=== PATIENT | female | born 1960 | race American Indian/Alaskan Native ===

== ENCOUNTER 2019-05-15 11:59 | Emergency (ER) | payer SELFPAY ==
--- NOTE | 2019-05-15 12:29 | Emergency Department Report ---
Blank Doc - Documentation Documentation: This is a 58-year-old female that presents with right arm pain with headache. Tachycardia in traiage. Stated that she feels like her heart if fluttering. This initial assessment/diagnostic orders/clinical plan/treatment(s) is/are subject to change based on patient's health status, clinical progression and re- assessment by fellow clinical providers in the ED. Further treatment and workup at subsequent clinical providers discretion. Patient/guardians urged not to elope from the ED as their condition may be serious if not clinically assessed and managed. Initial orders include: 1- Patient sent to MAIN ED for further evaluation and treatment 2- EKG 3- labs 4- CXR
[2019-05-15] MEDS ORDERED: TYLENOL PO ONE (12:31)
[2019-05-15] MEDS ORDERED: TYLENOL ONE (12:34)
--- NOTE | 2019-05-15 12:57 | XRay Report ---
CHEST TWO VIEWS: 05/15/19 11:59:00 CLINICAL: Chest pain. COMPARISON: None FINDINGS: Normal heart and pulmonary vasculature. The lungs are normally expanded and clear.Mild dextroscoliosis and minimal degenerative change in the thoracic spine. IMPRESSION: No acute cardiopulmonary process.
[2019-05-15 13:42] LABS: Basophils # (Auto) 0.1 K/mm3 (0.0-0.1); Basophils % (Auto) 1.1 % (0.0-1.8); Eosinophils # (Auto) 0.2 K/mm3 (0.0-0.4); Eosinophils % (Auto) 2.3 % (0.0-4.3); Hematocrit 41.6 % (30.3-42.9); Hemoglobin 14.4 gm/dl (10.1-14.3); Lymphocytes # (Auto) 2.3 K/mm3 (1.2-5.4); Lymphocytes % (Auto) 30.6 % (13.4-35.0); Mean Corpuscular HGB Conc 35 % (30-34); Mean Corpuscular Volume 92 fl (79-97); Monocytes # (Auto) 0.5 K/mm3 (0.0-0.8); Monocytes % (Auto) 6.8 % (0.0-7.3); Platelet Count 394 K/mm3 (140-440); Red Blood Count 4.52 M/mm3 (3.65-5.03)
[2019-05-15 13:52] LABS: INR 1.02 (0.87-1.13)
[2019-05-15 13:53] LABS: Partial Thromboplastin Time 25.8 Sec. (24.2-36.6)
--- NOTE | 2019-05-15 14:02 | Cat Scan Report ---
CT HEAD WITHOUT CONTRAST: HISTORY: Headache. TECHNIQUE: Sequential 2.5mm CT images. COMPARISON: none. FINDINGS: Cerebral Parenchyma: Within normal limits. Cerebellum: Within normal limits. Brainstem: Within normal limits. Ventricles: Normal. Sella: Normal. Extra-axial spaces: Normal. Basal Cisterns: Normal. Intracranial Hemorrhage: None. Midline Shift: None. Calvarium: Normal. Sinuses: Normal. Mastoid Air Cells: Normal. Visualized Orbits: Normal. IMPRESSION: Cranial CT scan within normal limits.
[2019-05-15 14:07] LABS: Alanine Aminotransferase 15 units/L (7-56); Albumin 4.1 g/dL (3.9-5); BUN/Creatinine Ratio 9; Blood Urea Nitrogen 7 mg/dL (7-17); Calcium 11.7 mg/dL (8.4-10.2); Hemolysis Index 15
[2019-05-15 14:54] VITALS: BP 115/114
== END 2019-05-15 15:53 | disposition left against medical advice (07) ==
LOC: ED 11:59
DX: R51 Headache (principal); Z53.21 Procedure and treatment not carried out due to patient leaving prior to being seen by health care provider
CPT/HCPCS: 36415; 70450; 71046; 80053; 84484; 85025; 85610; 85730; 93005; 93010

== ENCOUNTER 2019-05-16 06:24 | Emergency (ER) | payer SELFPAY ==
--- NOTE | 2019-05-16 07:14 | XRay Report ---
PROCEDURE: XR CHEST ROUTINE 2V TECHNIQUE: PA and lateral chest radiographs were obtained. HISTORY: right shoulder pain/elevated BP COMPARISONS: None. FINDINGS: Heart: Normal. Mediastinum/Vessels: Normal. Lungs/Pleural space: Normal. Bony thorax: No acute osseous abnormality. IMPRESSION: No acute cardiopulmonary process.. This document is electronically signed by Ventura Hemphill MD., May 16 2019 07:12:33 AM ET
[2019-05-16 07:33] LABS: BUN/Creatinine Ratio 11; Blood Urea Nitrogen 9 mg/dL (7-17); Calcium 11.1 mg/dL (8.4-10.2); Hemolysis Index 11
[2019-05-16 07:40] LABS: Basophils # (Auto) 0.1 K/mm3 (0.0-0.1); Eosinophils # (Auto) 0.3 K/mm3 (0.0-0.4); Eosinophils % (Auto) 4.2 % (0.0-4.3); Hematocrit 42.7 % (30.3-42.9); Hemoglobin 14.3 gm/dl (10.1-14.3); Lymphocytes % (Auto) 30.5 % (13.4-35.0); Mean Corpuscular HGB Conc 34 % (30-34); Mean Corpuscular Volume 93 fl (79-97); Monocytes # (Auto) 0.5 K/mm3 (0.0-0.8); Monocytes % (Auto) 7.7 % (0.0-7.3); Platelet Count 387 K/mm3 (140-440)
[2019-05-16 08:24] VITALS: BP 148/107
[2019-05-16] MEDS ORDERED: NORVASC ONE (09:26)
[2019-05-16] MEDS ORDERED: BABY ASPIRIN ONE (09:26)
[2019-05-16] MEDS ORDERED: BABY ASPIRIN PO ONE (09:29)
[2019-05-16] MEDS ORDERED: NORVASC PO ONE (09:29)
== END 2019-05-16 10:10 | disposition left against medical advice (07) ==
LOC: ED 06:24
DX: R51 Headache (principal); I10 Essential (primary) hypertension; Z53.21 Procedure and treatment not carried out due to patient leaving prior to being seen by health care provider
CPT/HCPCS: 36415; 71046; 80048; 84484; 85025; 93005; 93010

== ENCOUNTER 2019-06-09 15:01 | Emergency (ER) | payer OTHER ==
--- NOTE | 2019-06-09 16:11 | Event Note ---
ED Screening Note ED Screening Note: stepping onto the sidewalk and tripped over and fell onto her right shoulder never injured the shoulder before no PMhx no allergies to meds non smoker occ drinker no drug use This initial assessment/diagnostic orders/clinical plan/treatment(s) is/are subject to change based on patients health status, clinical progression and re- assessment by fellow clinical providers in the ED. Further treatment and workup at subsequent clinical providers discretion. Patient/guardian urged not to elope from the ED as their condition may be serious if not clinically assessed and managed. Initial orders include: XR of the right shoulder
--- NOTE | 2019-06-09 17:09 | XRay Report ---
RIGHT SHOULDER LIMITED 3 VIEWS INDICATION / CLINICAL INFORMATION: right shoulder and right humerus pain. COMPARISON: None available. FINDINGS: Linear lucency is demonstrated in the lateral aspect of the humeral head consistent with minimally di splaced fracture. No demonstrated glenohumeral dislocation. Signer Name: Alphonse Hdez MD Signed: 06/09/2019 5:05 PM Workstation Name: [id number]
[2019-06-09] MEDS ORDERED: ZOFRAN ODT PO ONE (19:45)
[2019-06-09] MEDS ORDERED: NORCO 5/325 PO ONE (19:45)
[2019-06-09] MEDS ORDERED: IBUPROFEN PO ONE (19:45)
[2019-06-09 20:25] VITALS: BP 119/90
--- NOTE | 2019-06-09 20:44 | Emergency Department Report ---
ED Fall HPI - General Chief Complaint: Fall Stated Complaint: FALL/R SHOULDER/ARM PAIN Time Seen by Provider: 06/09/19 16:10 Source: patient Mode of arrival: Wheelchair - History of Present Illness Initial Comments: Patient is a 58-year-old -[place] female with a history of hypertension who presents to the ED with complaint of acute onset persistent severe right shoulder pain, right arm pain and right knee pain after she slipped and fell down at the grocery store 8 hours ago. Patient states that the pain is worse with any attempted range of motion or any movement. Patient states that she is unable to perform an anterior range of motion completely with a right shoulder because of severe pain. Patient denies loss of consciousness, syncope, neck pain, chest pain, shortness of breath, numbness, headache, back pain, hip pain, numbness and tingling of upper and lower extremities bilaterally. MD Complaint: fall, other (severe right shoulder pain) -: Sudden, hour(s) (8) Fall From: standing When Fall Occurred: 4-6 hours [employer] Fall Witnessed: yes, by bystander Place Fall Occurred: other (grocery stone) Loss of Consciousness: none Prolonged Down Time?: no Symptoms Prior to Fall: none Location: other (right shoulder and arm) Location - Extremities: Right: Shoulder, Arm, Knee Severity: severe Severity scale (0 -10): 8 Quality: sharp, aching Context: tripped/slipped Associated Symptoms: denies. denies: headache, neck pain, numbness, weakness, chest paint, shortness of breath, abdominal pain, hematuria, unable to walk, lightheaded, vertigo, confusion - Related Data Home Medications Medication Instructions Recorded Confirmed Last Taken Atenolol [Tenormin] 25 mg PO BID 05/16/19 05/16/19 Unknown amLODIPine [Norvasc] 5 mg PO DAILY 05/16/19 05/16/19 Unknown Previous Rx's Medication Instructions Recorded Last Taken Type HYDROcodone/APAP 5-325 [[place] 1 each PO Q6HR PRN #12 tablet 06/09/19 Unknown Rx 5/325] Ibuprofen [Motrin] 600 mg PO Q8H PRN #21 tablet 06/09/19 Unknown Rx tiZANidine [Zanaflex 4mg TAB] 4 mg PO Q8H PRN #21 tablet 06/09/19 Unknown Rx Allergies Allergy/AdvReac Type Severity Reaction Status Date / Time No Known Allergies Allergy Verified 06/09/19 15:07 ED Review of Systems ROS: Stated complaint: FALL/R SHOULDER/ARM PAIN Other details as noted in HPI Constitutional: denies: chills, fever Eyes: denies: eye pain, eye discharge, vision change ENT: denies: ear pain, throat pain Respiratory: denies: cough, shortness of breath, wheezing Cardiovascular: denies: chest pain, palpitations Endocrine: no symptoms reported Gastrointestinal: denies: abdominal pain, nausea, diarrhea Genitourinary: denies: urgency, dysuria, discharge Musculoskeletal: arthralgia (right shoulder pain). denies: back pain, joint swelling Skin: denies: rash, lesions Neurological: denies: headache, weakness, paresthesias Psychiatric: denies: anxiety, depression Hematological/Lymphatic: denies: easy bleeding, easy bruising ED Past Medical Hx - Past Medical History Previous Medical History?: No Hx Hypertension: Yes - Surgical History Past Surgical History?: No - Social History Smoking Status: Never Smoker - Medications Home Medications: Home Medications Medication Instructions Recorded Confirmed Last Taken Type Atenolol [Tenormin] 25 mg PO BID 05/16/19 05/16/19 Unknown History amLODIPine [Norvasc] 5 mg PO DAILY 05/16/19 05/16/19 Unknown History HYDROcodone/APAP 5-325 [[place] 1 each PO Q6HR PRN #12 tablet 06/09/19 Unknown Rx 5/325] Ibuprofen [Motrin] 600 mg PO Q8H PRN #21 tablet 06/09/19 Unknown Rx tiZANidine [Zanaflex 4mg TAB] 4 mg PO Q8H PRN #21 tablet 06/09/19 Unknown Rx ED Physical Exam - General Limitations: No Limitations General appearance: alert, in no apparent distress - Head Head exam: Present: atraumatic, normocephalic, normal inspection - Eye Eye exam: Present: normal appearance, PERRL, EOMI. Absent: scleral icterus, conjunctival injection, nystagmus Pupils: Present: normal accommodation - ENT ENT exam: Present: normal exam, normal orophraynx, mucous membranes moist, TM's normal bilaterally, normal external ear exam - Neck Neck exam: Present: normal inspection, full ROM. Absent: tenderness, lymphadenopathy - Respiratory Respiratory exam: Present: normal lung sounds bilaterally. Absent: respiratory distress, wheezes, rales, rhonchi, stridor, chest wall tenderness, accessory muscle use, decreased breath sounds - Cardiovascular Cardiovascular Exam: Present: regular rate, normal rhythm, normal heart sounds. Absent: systolic murmur, diastolic murmur, rubs, gallop - GI/Abdominal GI/Abdominal exam: Present: soft, normal bowel sounds. Absent: distended, tenderness, guarding, rebound, hyperactive bowel sounds, hypoactive bowel sounds, organomegaly, mass, bruit, pulsatile mass - Rectal Rectal exam: Present: deferred - Extremities Exam Extremities exam: Present: normal inspection, tenderness (right shoulder tenderness with limited ROM due to pain; right knee and arm tenderness), normal capillary refill. Absent: pedal edema, joint swelling, calf tenderness - Back Exam Back exam: Present: normal inspection, full ROM. Absent: tenderness, CVA tenderness (R), CVA tenderness (L), muscle spasm, vertebral tenderness - Neurological Exam Neurological exam: Present: alert, oriented X3, CN II-XII intact, normal gait, reflexes normal - Psychiatric Psychiatric exam: Present: normal affect, normal mood - Skin Skin exam: Present: warm, dry, intact, normal color. Absent: rash ED Course Vital Signs 06/09/19 06/09/19 06/09/19 16:10 20:10 20:24 Temperature 97.8 F 98 F Pulse Rate 90 79 Respiratory 15 18 16 Rate Blood Pressure 129/88 Blood Pressure 119/90 [Left] O2 Sat by Pulse 100 100 Oximetry - Reevaluation(s) Reevaluation #1: 06/09/19 20:51 The patient is alert and oriented 3 and is not in any distress with normal vital signs. Patient was treated for pain in the ED and the right shoulder x- ray shows a linear lucency in the lateral aspect of the humeral head consistent with a minimally displaced fracture. There is no glenohumeral joint dislocation. The patient's right shoulder was immobilized and the patient is sent home on pain medications and muscle relaxants, and advised to follow-up with the orthopedic surgeon transition lead Dr. Salazar, in 2 days for reevaluation. Patient was advised to contact Dr. Salazar's office first thing on 06/12/2019 to schedule an appointment for evaluation. Patient is advised to return to the ED immediately if symptoms get worse. 06/09/19 20:52 ED Medical Decision Making - Radiology Data Radiology results: report reviewed, image reviewed The right shoulder x-ray shows a linear lucency in the lateral aspect of the humeral head consistent with a minimally displaced fracture. There is no glenohumeral joint dislocation. - Medical Decision Making The patient is alert and oriented 3 and is not in any distress with normal vital signs. Patient was treated for pain in the ED and the right shoulder x- ray shows a linear lucency in the lateral aspect of the humeral head consistent with a minimally displaced fracture. There is no glenohumeral joint dislocation. The patient's right shoulder was immobilized and the patient is sent home on pain medications and muscle relaxants, and advised to follow-up with the orthopedic surgeon transition lead Dr. Salazar, in 2 days for reevaluation. Patient was advised to contact Dr. Salazar's office first thing on 06/12/2019 to schedule an appointment for evaluation. Patient is advised to return to the ED immediately if symptoms get worse. - Differential Diagnosis right shoulder fracture; right arm contusion, right knee muscle strain Critical care attestation.: If time is entered above; I have spent that time in minutes in the direct care of this critically ill patient, excluding procedure time. ED Disposition Clinical Impression: Closed fracture of right shoulder Qualifiers: Encounter type: initial encounter Qualified Code(s): S42.91XA - Fracture of right shoulder girdle, part unspecified, initial encounter for closed fracture Contusion of right upper arm Qualifiers: Encounter type: initial encounter Qualified Code(s): S40.021A - Contusion of right upper arm, initial encounter Muscle strain of right knee Qualifiers: Encounter type: initial encounter Qualified Code(s): S86.911A - Strain of unspecified muscle(s) and tendon(s) at lower leg level, right leg, initial encounter Disposition: DC-01 TO HOME OR SELFCARE Is pt being admited?: No Does the pt Need Aspirin: No Condition: Stable Instructions: Muscle Strain (ED), Shoulder Sprain (ED), Muscle Spasm (ED) Additional Instructions: Take medications with food, drink plenty of fluids and follow-up with the orthopedic surgeon transition lead for further evaluation. Contact Dr. Salazar's office first thing on Wednesday06/12/2019 to schedule an appointment. Return to the ED immediately if symptoms get worse. Prescriptions: Ibuprofen [Motrin] 600 mg PO Q8H PRN #21 tablet PRN Reason: Pain HYDROcodone/APAP 5-325 [[place] 5/325] 1 each PO Q6HR PRN #12 tablet PRN Reason: Pain tiZANidine [Zanaflex 4mg TAB] 4 mg PO Q8H PRN #21 tablet PRN Reason: Spasms Referrals: SINDY SALAZAR MD [Staff Physician] - 2-3 Days Time of Disposition: 20:45 Print Language: CITIZEN OF [place]
== END 2019-06-09 21:18 | disposition home or self-care (01) ==
LOC: ED 15:01
DX: S42.91XA Fracture of right shoulder girdle, part unspecified, initial encounter for closed fracture (principal); I10 Essential (primary) hypertension; Z79.1 Long term (current) use of non-steroidal anti-inflammatories (NSAID); W01.198A Fall on same level from slipping, tripping and stumbling with subsequent striking against other object, initial encounter; Y93.89 Activity, other specified; Y92.89 Other specified places as the place of occurrence of the external cause; Y99.8 Other external cause status
CPT/HCPCS: Q0162